=== PATIENT | female | born 1995 | race Caucasian/White ===

== ENCOUNTER 2021-11-01 16:27 | Outpatient (CLI) | payer BC ==
[~2021-11-01] VITALS: Ht 162.6 cm; Wt 78.2 kg
[2021-11-01 16:56] VITALS: BP 117/72; PULSE 109; TEMP 98.9
--- NOTE | 2021-11-01 16:56 | NUR ---
1634- Pt arrives on unit ambulatory with , YAMINI for external version. Oriented to room. Pt instructed to change into gown. 164- Pt into bed, EFM and TOCO on and tracing well. O2 sat monitor on tracing and maternal HR. VSS. 1650- IV start in LH without difficulty, Labs obained to hold. Saline locked. 1655- ROSENDA Starr and Dr Mosquera at bedside. This RN out of room to grab Terbutaline. EFM and TOCO off by Dr Mosquera. Roshan, care transition manager at bedside. 170- Terbutaline given per MD order. Dr Mosquera performs External version, successful. Pt tolerated well. 1706- EFM and TOCO on and tracing well.
[2021-11-01] MEDS ORDERED: PRENATAL TABLET PO (17:22)
[2021-11-01 17:35] VITALS: BP 109/67; PULSE 92
[2021-11-01 18:08] VITALS: BP 104/71; PULSE 85
--- NOTE | 2021-11-01 18:20 | NUR ---
180- Pt denies contractions, mild, intermittent cramping. IV out without difficulty. Discharge paperwork given and explained, Pt denies questions. EFM and TOCO off. Pt up to change into street clothes. 1819- Pt ambulates off unit in stable condition with spouse.
== END 2021-11-01 18:20 | disposition home or self-care (01) ==
LOC: LDRO 16:27
DX: Z34.93 Encounter for supervision of normal pregnancy, unspecified, third trimester (principal); Z3A.36 36 weeks gestation of pregnancy

== ENCOUNTER 2021-11-22 15:27 | Outpatient (CLI) | payer BC ==
[~2021-11-22] VITALS: Ht 162.6 cm; Wt 80.5 kg
[~2021-11-22 15:27] MED LIST: PRENATAL TABLET PO
[2021-11-22 16:00] VITALS: BP 119/772; PULSE 82; TEMP 98.8
--- NOTE | 2021-11-22 16:52 | NUR ---
THIS 26 YO AT 39.5WKS GESTATION TO LR5 WITH C/O LEAKING CLEAR FLUID THIS AM. PT REOPRTS THAT SHE HAD INTERCOURSE AFTER THE VAGINAL LEAKING AND HAS NOT LEAKED FLUID THROUGHOUT THE DAY. ALSO REPORTS DECREASED MOVMENT TODAY. PT DENIES FEELING ANY CTXS OR VAGINAL BLEEDING
--- NOTE | 2021-11-22 17:17 | NUR ---
1555 - AMNITRACE NEGATIVE X2, SVE CLOSED
--- NOTE | 2021-11-22 17:35 | NUR ---
1620 - RN PHONES DR MOLINA, SEE PHYSICIAN NOTIFICATION
--- NOTE | 2021-11-22 17:37 | NUR ---
1635 - DISCHARGE INSTRUCTIONS GIVEN AND LABOR PRECAUTIONS REVIEWED, PT VOICES GOOD UNDERSTANDING 1645 - DISCHARGED AMBULATORY WITH IN STABLE CONDITION
== END 2021-11-22 16:45 | disposition home or self-care (01) ==
LOC: LDRO 15:27
DX: Z34.93 Encounter for supervision of normal pregnancy, unspecified, third trimester (principal); Z3A.39 39 weeks gestation of pregnancy

== ENCOUNTER 2021-11-26 09:45 | Inpatient (IN) | payer BC ==
[~2021-11-26] VITALS: Ht 162.6 cm; Wt 81.4 kg
[2021-11-26] VITALS (14 sets, daily range): BP systolic 110–139; BP diastolic 60–81; PULSE 77–105; TEMP 98–98.8
--- NOTE | 2021-11-26 10:00 | NUR ---
Pt arrived on unit via wheelchair with concerns for SROM at 0800 this morning with occasional contractions. Pt denies any vaginal bleeding and reports normal movement. EFM and toco monitors started. Vital signs WNL. SVE by this RN / with large amount of clear fluid noted on exam. Plan of care for labor admission reviewed with pt and at the bedside. Dr. Mosquera notified. See physician notification for details.
--- NOTE | 2021-11-26 10:40 | NUR ---
Roles at the bedside. Plan of care reviewed with pt and . FHR tracing and ctx pattern reviewed.
[2021-11-26 10:43] LABS: BASO % 0.3 % (0.0-2.0); EOS # 0.1 K/mm3 (0.0-0.7); EOS % 0.9 % (0.0-4.0); GRAN # 8.5 K/mm3 (1.4-6.5); GRAN % 70.6 % (42.2-75.2); HEMATOCRIT 38.5 % (37.0-47.0); HEMOGLOBIN 13.3 g/dl (12.5-16.0); LYMPH # 2.7 K/mm3 (1.2-3.4); LYMPH % 22.7 % (20.0-51.0); MEAN CELL VOLUME 88 fl (80.0-100.0); MEAN CORPUSCULAR HEMOGLOBIN 30 pg (27-31); MEAN CORPUSCULAR HGB CONC 35 g/dl (33.0-37.0); MEAN PLATELET VOLUME 11.1 fl (7.4-10.4); MONO # 0.6 K/mm3 (0.1-0.6); MONO % 4.7 % (1.7-9.3); PLATELET COUNT 213 K/mm3 (130-400); RED BLOOD COUNT 4.39 M/mm3 (4.10-5.30); REDCELL DISTRIBUTION WIDTH-CV 13.1 % (11.5-14.5)
--- NOTE | 2021-11-26 14:45 | NUR ---
Discussion of pitocin augmentation with pt and at the bedside. Pt crying and states she does not want to start pitocin and was hoping to go natural with her labor.
--- NOTE | 2021-11-26 15:50 | NUR ---
Pt ok with pitocin augmentation. Pitocin started per order. See EMAR for details.
--- NOTE | 2021-11-26 19:10 | NUR ---
FROM 1910 TO 1954 PT WAS STANDING AT THE BEDSIDE LEANING ON THE BED. PT IS HAVING INTENSE BACK LABOR. IS USING COUNTER PRESSURE ON HER BACK. I WAS ADJUSTING THE MONITOR FREQUENTLY FOR FHR. ROLES HERE AND I MADE HER AWARE. PT
--- NOTE | 2021-11-26 19:55 | NUR ---
PT SITTING ON THE SIDE OF THE BED FOR EPIDURAL PLACEMENT. DAMIR MERCHANDISER SEASONAL HERE. 2000 SINGLE SHOT DONE. PT TOLERATED PROCEDURE WELL 2007 PT ASSISTED TO A SUPINE POSITION AND MONITORS ADJUSTED.
--- NOTE | 2021-11-26 20:50 | NUR ---
PT REQUESTING AN EPIDURAL. SHE STATES SHE CAN'T TAKE THE BACK LABOR PAIN ANY LONGER. [facility] DIRECTOR NOTIFIED. IV BOLUS STARTED. PT AMB TO THE BR TO VOID.
--- NOTE | 2021-11-26 23:43 | NUR ---
PT REQUESTING TO LAY DOWN FOR A LITTLE WHILE SO SHE CAN SLEEP. SHE IS EXHAUSTED AND WANTS TO SLEEP. ROLES UPDATED.
[2021-11-27] VITALS (36 sets, daily range): BP systolic 91–141; BP diastolic 52–93; PULSE 74–133; TEMP 97.4–100.4
--- NOTE | 2021-11-27 00:10 | NUR ---
PT FEELING SOME INTENSE PRESSURE AND REQUESTED TO BE CHECKED. SVE /+1. DR ROLES UPDATED.
--- NOTE | 2021-11-27 00:38 | NUR ---
LATE DECELS NOTED. CHANGED PT POSITION TO RIGHT LATERAL WITH PILLOWS PLACED FOR COMFORT.
--- NOTE | 2021-11-27 01:12 | NUR ---
UC'S EVERY ONE MINUTE. PITOCIN DECREASED TO [address] LOUISE NOTIFIED.
--- NOTE | 2021-11-27 04:44 | NUR ---
FHR DECEL WITH UC' PT STATES SHE IS FEELING MORE PRESSURE. ALLANE ANT LIP, +[address] ROLES NOTIFIED AND UPDATED.
--- NOTE | 2021-11-27 05:09 | NUR ---
FHR DECEL WITH UC. SVE ANT LIP/100/+2. PT POSITIONED TO A HIGH FOWLERS POSITION.
--- NOTE | 2021-11-27 05:44 | NUR ---
DR LOUISE NOTIFIED OF SVE ANT LIP/100/+2. TEMP 100.4 AX, ORAL TEMP 99.8. NO ORDERS FOR ANTIBIOTICS AT THIS TIME. CONTINUE TO MONITOR HER TEMP. UPDATE ON FHR 150-155, ACCELS. OCCASSIONAL VARIBLE, MODERATE VARIBILITY. WILL CONTINUE TO MONITOR.
--- NOTE | 2021-11-27 07:00 | NUR ---
0650-SVE /+2 PERFORMED BY Sadaf CHARLES RN. ROLES NOTIFIED AND ORDER GIVEN TO BEGIN PUSHING. 0700-PT PUSHING WITH CONTRACTIONS. RN CONTINOUSLY AT BEDSIDE MONITORING FHR. PT TOLERATING PUSHING WELL. FHR IN THE 150S AT THIS TIME WITH MODERATE VARIABLILY AND INTERMITTENT VARIABLE DECELERATIONS. AWARE.
--- NOTE | 2021-11-27 07:37 | NUR ---
0737-FHR IN THE 160S WITH LATE DECELATIONS AND MODERATE VARIABLILTY. PT REPOSITOINED ON LEFT SIDE. O2 MASK PLACED AND ONEIL BOLUS STARTED. DR. LOUISE NOTFIED. EN ROUTE TO FURTHER ASSESS FHR. 0750-FHR IN THE 150S AT THIS TIME WITH MINIMAL VARIABLILTY. 0800-DR. LOUISE AT BEDSIDE. FHR 150 AT THIS TIME WITH MODERATE VARIABILTY. ORDER GIVEN TO CONTINUE PUSHING.
--- NOTE | 2021-11-27 08:05 | NUR ---
PT RESUMED PUSHING WITH CONTRACTIONS. RN AND MD AT BEDSIDE MONITORING FHR. PT PUSHING WELL WITH CONTRACTIONS. FHR IN THE 150S WITH MODERATE VARIABLITLY.
--- NOTE | 2021-11-27 08:42 | NUR ---
0842-DR. LOUISE AT BEDSIDE. REVIEWED AND KETTY TUCKER MD DISCUSSING POC WITH PT FOR A VACUUM OR FORCEP DELIVERY. RISK AND BENEFITS REVIEWED WITH PT BY DR. LOUISE. PT VERBALIZED UNDERSTANDING AND AGREES WITH POC AT THIS TIME. 0850-DR. LOUISE ATTEMPTING TO PLACE FORCEPS ON HEAD. DR. LOUISE REMOVED FORCEPS. 0852-DR. LOUISE PLACED VACUUM ON INFANT HEAD AND APPLIED PRESSURE TO GREEN JUNIOR. TRACTION APPLIED BY DR. LOUISE WITH MATERNAL PUSHING EFFORTS. FHR IN THE 150S AT THIS TIME WITH MODERATE VARIABILITY. 0856-VACUUM REMOVED BY DR. LOUISE FROM HEAD. 0858-MIDLINE EPISIOTOMY MADE BY DR. LOUISE. PT TOLERATED WELL. 0859- OF HEAD BY . 0900- OF BODY BY DR. LOUISE. 0907- OF PLACENTA BY DR. LOUISE. PITOCIN BOLUS STARTED. PT STABLE AT THIS TIME. CAREPLAN UPDATED.
[2021-11-28 08:16] VITALS: BP 110/61; PULSE 88; TEMP 97.9
[2021-11-28 16:50] VITALS: BP 131/79; PULSE 84; TEMP 97.9
[2021-11-28 21:50] VITALS: BP 96/64; PULSE 74; TEMP 97.8
[2021-11-29] MEDS ORDERED: MOTRIN 800800 MG/TAB PO (08:27)
[2021-11-29 08:45] VITALS: BP 135/77; PULSE 85; TEMP 98.4
== END 2021-11-29 16:50 | disposition critical access hospital (66) | DRG 807 ==
LOC: LDRO 09:45 → LDR 10:12 → OB 10:12
PROVIDERS: ADMIT Obstetrics & Gynecology
PROC: 10D07Z6 Extraction of Products of Conception, Vacuum, Via Natural or Artificial Opening (ICD-10-PCS; principal; 2021-11-27)
PROC: 0W8NXZZ Division of Female Perineum, External Approach (ICD-10-PCS; 2021-11-27)
PROC: 0UQMXZZ Repair Vulva, External Approach (ICD-10-PCS; 2021-11-27)
DX: O48.0 Post-term pregnancy (principal); Z37.0 Single live birth; O76 Abnormality in fetal heart rate and rhythm complicating labor and delivery; O70.0 First degree perineal laceration during delivery; Z3A.40 40 weeks gestation of pregnancy
CPT/HCPCS: J2590; J2791; J2795; J7120